=== PATIENT | female | born 1980 | race Caucasian/White ===

== ENCOUNTER 2024-07-10 23:45 | Emergency (ER) | payer SELFPAY ==
[~2024-07-10] VITALS: Ht 162.6 cm; Wt 88.5 kg
[2024-07-11 00:05] VITALS: BP 134/73; PULSE 120; RESP 20; TEMP 99.1; O2SAT 99
[2024-07-11 00:39] VITALS: TEMP 99.2
[2024-07-11] MEDS: ALBUTEROL 0.083% 2.5 MG/3 ML NEBU INH ONE (01:39)
[2024-07-11 01:40] VITALS: PULSE 103; RESP 30; O2SAT 90
[2024-07-11 01:50] VITALS: BP 134/72; PULSE 113; RESP 26; O2SAT 93
[2024-07-11] MEDS: predniSONE 20 MG TAB PO ONE (01:50)
[2024-07-11] MEDS ORDERED: PRED20TA5 PO (03:09)
[2024-07-11] MEDS ORDERED: BENZ200C4 PO (03:09)
[2024-07-11] MEDS ORDERED: ALBU0.0912 INH (03:09)
[2024-07-11] MEDS ORDERED: NAPR-1560 PO (03:09)
== END 2024-07-11 03:14 | disposition home or self-care (01) ==
LOC: MED 23:45
DX: R05.9 Cough, unspecified (principal); J02.9 Acute pharyngitis, unspecified; M79.10 Myalgia, unspecified site; R07.89 Other chest pain
CPT/HCPCS: 71045; 81025; 94640; 99283; J7512; J7613; Q0092